=== PATIENT | female | born 1995 | race Caucasian/White ===

== ENCOUNTER 2021-09-29 22:12 | Emergency (ER) | payer SELFPAY ==
[~2021-09-29] VITALS: Ht 157.5 cm; Wt 72.0 kg
[2021-09-29 22:17] VITALS: BP 134/82
== END 2021-09-30 00:49 | disposition left against medical advice (07) ==
LOC: EMS 22:12
DX: R06.02 Shortness of breath (principal); Z53.21 Procedure and treatment not carried out due to patient leaving prior to being seen by health care provider